=== PATIENT | female | born 1960 | race Caucasian/White ===

== ENCOUNTER 2020-12-05 11:44 | Outpatient (CLI) | payer OTHER | END 2020-12-05 11:45 | disposition home or self-care (01) | LOC: CSHWCC 11:44 | PROVIDERS: ATTEND Nurse Practitioner Family | DX: I87.311 Chronic venous hypertension (idiopathic) with ulcer of right lower extremity (principal); I87.2 Venous insufficiency (chronic) (peripheral); E11.622 Type 2 diabetes mellitus with other skin ulcer; L97.812 Non-pressure chronic ulcer of other part of right lower leg with fat layer exposed; R60.0 Localized edema; E11.649 Type 2 diabetes mellitus with hypoglycemia without coma; E11.51 Type 2 diabetes mellitus with diabetic peripheral angiopathy without gangrene; I70.25 Atherosclerosis of native arteries of other extremities with ulceration; I82.449 Acute embolism and thrombosis of unspecified tibial vein; M06.9 Rheumatoid arthritis, unspecified ==

== ENCOUNTER 2020-12-19 14:48 | Outpatient (CLI) | payer OTHER | END 2020-12-19 14:49 | disposition home or self-care (01) | LOC: CSHWCC 14:48 | PROVIDERS: ATTEND Nurse Practitioner Family | DX: I87.311 Chronic venous hypertension (idiopathic) with ulcer of right lower extremity (principal); I87.2 Venous insufficiency (chronic) (peripheral); E11.622 Type 2 diabetes mellitus with other skin ulcer; L97.812 Non-pressure chronic ulcer of other part of right lower leg with fat layer exposed; E11.51 Type 2 diabetes mellitus with diabetic peripheral angiopathy without gangrene; R60.0 Localized edema; I70.25 Atherosclerosis of native arteries of other extremities with ulceration; I82.449 Acute embolism and thrombosis of unspecified tibial vein; E11.649 Type 2 diabetes mellitus with hypoglycemia without coma; M06.9 Rheumatoid arthritis, unspecified | CPT/HCPCS: 99213; G0463 ==

== ENCOUNTER 2021-01-16 10:48 | Outpatient (CLI) | payer OTHER | END 2021-01-16 10:49 | disposition home or self-care (01) | LOC: CSHWCC 10:48 | PROVIDERS: ATTEND Nurse Practitioner Family | DX: I87.311 Chronic venous hypertension (idiopathic) with ulcer of right lower extremity (principal); R60.0 Localized edema; E11.649 Type 2 diabetes mellitus with hypoglycemia without coma; I10 Essential (primary) hypertension; I82.449 Acute embolism and thrombosis of unspecified tibial vein; I87.2 Venous insufficiency (chronic) (peripheral); L97.812 Non-pressure chronic ulcer of other part of right lower leg with fat layer exposed; M06.9 Rheumatoid arthritis, unspecified; E11.622 Type 2 diabetes mellitus with other skin ulcer | CPT/HCPCS: 99213; G0463 ==

== ENCOUNTER 2021-02-13 16:41 | Outpatient (CLI) | payer OTHER | END 2021-02-13 16:42 | disposition home or self-care (01) | LOC: CSHWCC 16:41 | PROVIDERS: ATTEND Nurse Practitioner Family | DX: I87.311 Chronic venous hypertension (idiopathic) with ulcer of right lower extremity (principal); E11.622 Type 2 diabetes mellitus with other skin ulcer; L97.819 Non-pressure chronic ulcer of other part of right lower leg with unspecified severity; R60.0 Localized edema; E11.649 Type 2 diabetes mellitus with hypoglycemia without coma; E11.51 Type 2 diabetes mellitus with diabetic peripheral angiopathy without gangrene; I70.25 Atherosclerosis of native arteries of other extremities with ulceration; I82.449 Acute embolism and thrombosis of unspecified tibial vein; I87.2 Venous insufficiency (chronic) (peripheral); L97.812 Non-pressure chronic ulcer of other part of right lower leg with fat layer exposed; M06.9 Rheumatoid arthritis, unspecified | CPT/HCPCS: 99213; G0463 ==

== ENCOUNTER 2021-05-22 09:45 | Outpatient (CLI) | payer OTHER | END 2021-05-22 09:46 | disposition home or self-care (01) | LOC: CSHWCC 09:45 | PROVIDERS: ATTEND Nurse Practitioner Family | DX: I87.311 Chronic venous hypertension (idiopathic) with ulcer of right lower extremity (principal); I87.2 Venous insufficiency (chronic) (peripheral); E11.622 Type 2 diabetes mellitus with other skin ulcer; L97.819 Non-pressure chronic ulcer of other part of right lower leg with unspecified severity; E11.51 Type 2 diabetes mellitus with diabetic peripheral angiopathy without gangrene; I70.25 Atherosclerosis of native arteries of other extremities with ulceration; R60.0 Localized edema; I82.449 Acute embolism and thrombosis of unspecified tibial vein; E11.649 Type 2 diabetes mellitus with hypoglycemia without coma; M06.9 Rheumatoid arthritis, unspecified | CPT/HCPCS: 17250; 29581; 99213; G0463 ==

== ENCOUNTER 2021-07-24 09:12 | Outpatient (CLI) | payer OTHER | END 2021-07-24 09:13 | disposition home or self-care (01) | LOC: CSHWCC 09:12 | PROVIDERS: ATTEND Nurse Practitioner Family | DX: I87.311 Chronic venous hypertension (idiopathic) with ulcer of right lower extremity (principal); E11.622 Type 2 diabetes mellitus with other skin ulcer; L97.819 Non-pressure chronic ulcer of other part of right lower leg with unspecified severity; E11.51 Type 2 diabetes mellitus with diabetic peripheral angiopathy without gangrene; E11.649 Type 2 diabetes mellitus with hypoglycemia without coma; I70.25 Atherosclerosis of native arteries of other extremities with ulceration; I82.449 Acute embolism and thrombosis of unspecified tibial vein; M06.9 Rheumatoid arthritis, unspecified; R60.0 Localized edema; I10 Essential (primary) hypertension | CPT/HCPCS: 17250; 99213; G0463 ==

== ENCOUNTER 2021-08-28 12:15 | Outpatient (CLI) | payer OTHER | END 2021-08-28 12:16 | disposition home or self-care (01) | LOC: CSHWCC 12:15 | PROVIDERS: ATTEND Nurse Practitioner Family | DX: I87.311 Chronic venous hypertension (idiopathic) with ulcer of right lower extremity (principal); I87.2 Venous insufficiency (chronic) (peripheral); E11.649 Type 2 diabetes mellitus with hypoglycemia without coma; E11.51 Type 2 diabetes mellitus with diabetic peripheral angiopathy without gangrene; L97.819 Non-pressure chronic ulcer of other part of right lower leg with unspecified severity; I82.449 Acute embolism and thrombosis of unspecified tibial vein; I10 Essential (primary) hypertension; I70.25 Atherosclerosis of native arteries of other extremities with ulceration; M06.9 Rheumatoid arthritis, unspecified; R60.0 Localized edema | CPT/HCPCS: 17250; 99213; G0463 ==

== ENCOUNTER 2021-09-11 15:09 | Outpatient (CLI) | payer OTHER | END 2021-09-11 15:10 | disposition home or self-care (01) | LOC: CSHWCC 15:09 | PROVIDERS: ATTEND Nurse Practitioner Family | DX: I87.311 Chronic venous hypertension (idiopathic) with ulcer of right lower extremity (principal); E11.649 Type 2 diabetes mellitus with hypoglycemia without coma; I10 Essential (primary) hypertension; I70.25 Atherosclerosis of native arteries of other extremities with ulceration; I82.449 Acute embolism and thrombosis of unspecified tibial vein; I87.2 Venous insufficiency (chronic) (peripheral); L97.819 Non-pressure chronic ulcer of other part of right lower leg with unspecified severity; M06.9 Rheumatoid arthritis, unspecified; R60.0 Localized edema | CPT/HCPCS: 99213; G0463 ==

== ENCOUNTER 2021-10-09 14:03 | Outpatient (CLI) | payer OTHER | END 2021-10-09 14:04 | disposition home or self-care (01) | LOC: CSHWCC 14:03 | PROVIDERS: ATTEND Nurse Practitioner Family | DX: I87.311 Chronic venous hypertension (idiopathic) with ulcer of right lower extremity (principal); L97.819 Non-pressure chronic ulcer of other part of right lower leg with unspecified severity; R60.0 Localized edema; E11.649 Type 2 diabetes mellitus with hypoglycemia without coma; I70.25 Atherosclerosis of native arteries of other extremities with ulceration; I82.449 Acute embolism and thrombosis of unspecified tibial vein; I87.2 Venous insufficiency (chronic) (peripheral); M06.9 Rheumatoid arthritis, unspecified ==